=== PATIENT | male | born 1970 | race Hispanic/Latino ===

== ENCOUNTER → 2017-12-09 | Outpatient (CLI) | payer MEDICARE, OTHER ==
[~2017-12-09] MED LIST: AMOX-429 PO; CANA300T PO; GLIM4TAB3 PO; IOPAMIDOL-370 75 ML VIAL IV ONE; LISI40TA4 PO; SITA100T12 PO
== END | disposition home or self-care (01) ==
LOC: RAH 12:20
PROVIDERS: ATTEND Internal Medicine Nephrology
DX: N28.89 Other specified disorders of kidney and ureter (principal)
CPT/HCPCS: 74178; Q9967

== ENCOUNTER 2020-10-28 14:04 | Emergency (ER) | payer MEDICARE ==
[~2020-10-28 14:04] MED LIST changes: -AMOX-429 PO; -CANA300T PO; +CLOP75TA32 PO; +GABA-533 PO; -GLIM4TAB3 PO; -IOPAMIDOL-370 75 ML VIAL IV ONE; -LISI40TA4 PO; +LISI40TA9 PO; -SITA100T12 PO; +SITA1TBM4 PO
[2020-10-28 14:36] LABS: BASOPHILS % (AUTO) 0.2 % (0.0-5.0); EOSINOPHILS % (AUTO) 0.7 % (0.0-8.0); LYMPHOCYTES % (AUTO) 21.6 % (21.0-51.0); MEAN CORPUSCULAR HEMOGLOBIN 29.2 pg (27.0-33.0); MEAN CORPUSCULAR HGB CONC 34.5 g/dL (32.0-36.0); MEAN CORPUSCULAR VOLUME 84.5 fL (79-99); MONOCYTES % (AUTO) 6.5 % (3.0-13.0); NEUTROPHILS % (AUTO) 70.7 % (40.0-77.0); PLATELET COUNT (AUTO) 276 K/uL (130-400); RED BLOOD CELL COUNT(AUTO) 5.21 MIL/uL (4.50-6.20); RED CELL DISTRIBUTION WIDTH 12.9 % (11.0-15.5); WHITE BLOOD COUNT (AUTO) 16.6 K/uL (4.8-10.8)
[2020-10-28 14:49] LABS: CREATININE 1.5 mg/dL (0.5-1.5); POTASSIUM 3.6 mmol/L (3.5-5.1)
[2020-10-28 14:51] LABS: INR 1.03 (0.85-1.15)
[2020-10-28 14:53] LABS: PARTIAL THROMBOPLASTIN TIME 26.8 SEC (26.3-35.5)
[2020-10-28 14:54] LABS: ALBUMIN 3.7 g/dL (3.5-5.0); BILIRUBIN,TOTAL 0.5 mg/dL (0.2-1.0); TOTAL PROTEIN, SERUM 8.4 g/dL (6.0-8.3)
[2020-10-28] MEDS ORDERED: MAG/ALUM/SIMETH 30 ML UDCUP ONE (15:24)
[2020-10-28] MEDS ORDERED: LIDOCAINE HCL 2% VISCOUS 15 ML UDCUP ONE (15:24)
[2020-10-28] MEDS ORDERED: PANTOPRAZOLE 40 MG/VIAL ONE (15:25)
== END 2020-10-28 16:42 | disposition left against medical advice (07) ==
LOC: EDH 14:04
DX: R07.89 Other chest pain (principal); K29.20 Alcoholic gastritis without bleeding; E11.9 Type 2 diabetes mellitus without complications; I10 Essential (primary) hypertension; Z72.0 Tobacco use
CPT/HCPCS: 36415; 71045; 80053; 82550; 83690; 84484; 85025; 85610; 85730; 93005; 96365; 99285; C9113

== ENCOUNTER 2021-12-09 16:36 | Observation (INO) | payer MEDICARE ==
[~2021-12-09] VITALS: Ht 172.7 cm; Wt 97.1 kg
[2021-12-09 17:18] LABS: HEMATOCRIT 41.4 % (42-54); MEAN CORPUSCULAR HEMOGLOBIN 29.4 pg (27.0-33.0); MEAN CORPUSCULAR HGB CONC 33.3 g/dL (32.0-36.0); MEAN CORPUSCULAR VOLUME 88.1 fL (79-99); RED BLOOD CELL COUNT(AUTO) 4.7 MIL/uL (4.50-6.20); RED CELL DISTRIBUTION WIDTH 13.6 % (11.0-15.5); WHITE BLOOD COUNT (AUTO) 8.9 K/uL (4.8-10.8)
[2021-12-09] MEDS ORDERED: PHARMACY COMMUNICATION MISC SCH ×3 (17:30→18:00)
[2021-12-09] MEDS ORDERED: ONDANSETRON 4MG INJ IVP PRN (17:30)
[2021-12-09] MEDS ORDERED: DIPHENHYDRAMINE HCL 25 MG CAPSULE PO PRN (17:30)
[2021-12-09] MEDS ORDERED: GLUCAGON 1MG KIT 1 MG ML IM PRN (17:30)
[2021-12-09] MEDS ORDERED: 0.9%NACL 10ML VIAL IVP PRN (17:30)
[2021-12-09] MEDS ORDERED: ACETAMINOPHEN 325 MG TAB PO PRN (17:30)
[2021-12-09] MEDS ORDERED: ZOLPIDEM TARTRATE 5 MG TAB PO PRN (17:30)
[2021-12-09] MEDS ORDERED: GLIP10TA9 PO (17:33)
[2021-12-09] MEDS ORDERED: SERT-440 PO (17:33)
[2021-12-09] MEDS ORDERED: PIOG30TA70 PO (17:33)
[2021-12-09] MEDS ORDERED: LINE600T14 PO (17:33)
[2021-12-09] MEDS ORDERED: SITA1TAB6 PO (17:33)
[2021-12-09] MEDS ORDERED: AEC81 PO (17:33)
[2021-12-09] MEDS ORDERED: CEFU500T67 PO (17:33)
[2021-12-09] MEDS ORDERED: FOLI1TAB85 PO (17:33)
[2021-12-09] MEDS ORDERED: PRAV20TA4 PO (17:33)
[2021-12-09 17:46] LABS: CREATININE 1.4 mg/dL (0.5-1.5)
[2021-12-09 17:51] LABS: ALBUMIN 3.4 g/dL (3.5-5.0); BILIRUBIN,DIRECT 0.1 mg/dL (0.0-0.3); BILIRUBIN,TOTAL 0.3 mg/dL (0.2-1.0); TOTAL PROTEIN, SERUM 7.5 g/dL (6.0-8.3)
[2021-12-09] MEDS ORDERED: VANCOMYCIN 1.75GM/250ML NS IV ONE ×2 (18:00)
[2021-12-09] MEDS ORDERED: VANCOMYCIN PROTOCOL PER PHARMACY IV SCH (18:00)
[2021-12-09] MEDS ORDERED: INSULIN R NPO SS1 SQ SCH (18:00)
[2021-12-09] MEDS ORDERED: MORPHINE 4 MG SYG IVP PRN (20:30)
[2021-12-09] MEDS ORDERED: MORPHINE 4 MG SYG IM PRN (20:30)
[2021-12-09] MEDS ORDERED: INSULIN R PO SSI SQ SCH (21:00)
[2021-12-09 21:45] VITALS: BP 149/92
[2021-12-09] MEDS: MORPHINE 4 MG SYG IVP PRN (23:59)
[2021-12-09] MEDS: ZOSYN 3.375GM+NS 50ML 50 ML IV SCH (23:59)
[2021-12-10] VITALS: BP 159/93
[2021-12-10 04:00] VITALS: BP 122/78
[2021-12-10] MEDS: MORPHINE 4 MG SYG IVP PRN ×4 (04:13→19:59)
[2021-12-10 05:02] LABS: HEMATOCRIT 39.2 % (42-54); MEAN CORPUSCULAR HEMOGLOBIN 28.2 pg (27.0-33.0); MEAN CORPUSCULAR HGB CONC 32.1 g/dL (32.0-36.0); MEAN CORPUSCULAR VOLUME 87.7 fL (79-99); RED BLOOD CELL COUNT(AUTO) 4.47 MIL/uL (4.50-6.20); RED CELL DISTRIBUTION WIDTH 13.5 % (11.0-15.5); WHITE BLOOD COUNT (AUTO) 11.1 K/uL (4.8-10.8)
[2021-12-10] MEDS: VANCOMYCIN 750MG VIAL IVPB SCH ×2 (05:30→17:06)
[2021-12-10] MEDS: 0.9% NACL 250ML 250 ML IV SCH ×2 (05:30→17:06)
[2021-12-10 05:31] LABS: ALBUMIN 3.2 g/dL (3.5-5.0); BILIRUBIN,DIRECT 0.1 mg/dL (0.0-0.3); BILIRUBIN,TOTAL 0.5 mg/dL (0.2-1.0); CREATININE 1.5 mg/dL (0.5-1.5); TOTAL PROTEIN, SERUM 7.1 g/dL (6.0-8.3)
[2021-12-10 08:00] VITALS: BP 131/76
[2021-12-10] MEDS: ZOSYN 3.375GM+NS 50ML 50 ML IV SCH ×3 (09:33→22:29)
[2021-12-10 11:00] VITALS: BP 95/57
[2021-12-10 15:55] VITALS: BP 103/70
[2021-12-10 20:00] VITALS: BP 104/64
[2021-12-11] VITALS: BP_SYST 110; BP_SYST 127; BP_DIAS 74; BP_DIAS 79
[2021-12-11] MEDS: MORPHINE 4 MG SYG IVP PRN ×2 (00:31→04:54)
[2021-12-11 04:00] VITALS: BP 135/76
[2021-12-11] MEDS: ZOSYN 3.375GM+NS 50ML 50 ML IV SCH ×3 (06:05→23:35)
[2021-12-11] MEDS: VANCOMYCIN 750MG VIAL IVPB SCH ×2 (06:45→22:03)
[2021-12-11] MEDS: 0.9% NACL 250ML 250 ML IV SCH ×2 (06:45→22:03)
[2021-12-11 08:00] VITALS: BP 120/68
[2021-12-11] MEDS ORDERED: COMPOUND IV REFRIGERATED 1 EACH IVSOLN MISC PRN (09:00)
[2021-12-11] MEDS: HYDROCODONE/ACETAMINOPHEN 7.5/325 MG TAB PO SCH ×2 (09:19→17:51)
[2021-12-11 11:32] VITALS: BP 108/67
[2021-12-11] MEDS ORDERED: VANCOMYCIN 1.25GM/NS 250ML IVPB SCH ×2 (12:00)
[2021-12-11 16:00] VITALS: BP 151/82
[2021-12-11 20:00] VITALS: BP 131/85
[2021-12-12] VITALS: BP 112/51
[2021-12-12] MEDS: HYDROCODONE/ACETAMINOPHEN 7.5/325 MG TAB PO SCH ×2 (01:16→08:25)
[2021-12-12 04:00] VITALS: BP 127/80
[2021-12-12 04:46] LABS: BASOPHILS % (AUTO) 0.3 % (0.0-5.0); EOSINOPHILS % (AUTO) 3.7 % (0.0-8.0); HEMATOCRIT 37.1 % (42-54); LYMPHOCYTES % (AUTO) 25.2 % (21.0-51.0); MEAN CORPUSCULAR HEMOGLOBIN 28.2 pg (27.0-33.0); MEAN CORPUSCULAR HGB CONC 32.6 g/dL (32.0-36.0); MEAN CORPUSCULAR VOLUME 86.5 fL (79-99); NEUTROPHILS % (AUTO) 65.4 % (40.0-77.0); PLATELET COUNT (AUTO) 175 K/uL (130-400); RED BLOOD CELL COUNT(AUTO) 4.29 MIL/uL (4.50-6.20); RED CELL DISTRIBUTION WIDTH 13.4 % (11.0-15.5); WHITE BLOOD COUNT (AUTO) 9.9 K/uL (4.8-10.8)
[2021-12-12] MEDS: MORPHINE 4 MG SYG IVP PRN ×2 (04:51→11:41)
[2021-12-12 05:35] LABS: BILIRUBIN,TOTAL 0.2 mg/dL (0.2-1.0); CREATININE 1.5 mg/dL (0.5-1.5); POTASSIUM 3.8 mmol/L (3.5-5.1); TOTAL PROTEIN, SERUM 6.8 g/dL (6.0-8.3)
[2021-12-12] MEDS: VANCOMYCIN 750MG VIAL IVPB SCH (06:34)
[2021-12-12] MEDS: ZOSYN 3.375GM+NS 50ML 50 ML IV SCH (06:34)
[2021-12-12] MEDS: 0.9% NACL 250ML 250 ML IV SCH (06:34)
[2021-12-12 08:00] VITALS: BP 129/75
[2021-12-12 12:07] VITALS: BP 136/84
== END 2021-12-12 13:30 | disposition home or self-care (01) ==
LOC: EDH 16:36 → EDHIP 16:37 → 3CH 21:01
PROVIDERS: ADMIT Internal Medicine; ATTEND Internal Medicine
DX: H60.02 Abscess of left external ear (principal); H60.12 Cellulitis of left external ear; E11.51 Type 2 diabetes mellitus with diabetic peripheral angiopathy without gangrene; I10 Essential (primary) hypertension; E78.5 Hyperlipidemia, unspecified; J44.9 Chronic obstructive pulmonary disease, unspecified; G47.33 Obstructive sleep apnea (adult) (pediatric); Z79.899 Other long term (current) drug therapy
CPT/HCPCS: 36415 ×4; 80048 ×2; 80053; 80076 ×2; 80202; 82948 ×3; 85025; 85027 ×2; 87070; 96365; 96366 ×4; 96367; 96368; 96375; 96376 ×4; G0378 ×67; G0379; J2270 ×10; J2405; J2543 ×8; J3370 ×7; J7050 ×7

== ENCOUNTER 2025-06-22 21:15 | Emergency (ER) | payer MEDICARE, MEDICAID ==
[~2025-06-22] VITALS: Ht 172.7 cm; Wt 95.3 kg
[~2025-06-22 21:15] MED LIST changes: -CLOP75TA32 PO; +DAPA10TA PO; +FAMO40TA7 PO; +FLUT16H EN; +FOLI0.8T22 PO; +GABA-529 PO; -GABA-533 PO; -LISI40TA9 PO; +PRAV20TA59 PO; +SERT-440 PO; -SITA1TBM4 PO
[2025-06-22 21:28] LABS: IMMATURE GRANULOCYTE ABSOLUTE 0.07 K/uL (0-1); NUCLEATED RED BLOOD CELLS 0.0 % (0.0-0.19); PLATELET COUNT (AUTO) 581 K/uL (130-400); RED BLOOD CELL COUNT(AUTO) 5.46 MIL/uL (4.50-6.20); RED CELL DISTRIBUTION WIDTH 18.6 % (11.0-15.5); WHITE BLOOD COUNT (AUTO) 14.9 K/uL (4.8-10.8)
--- NOTE | 2025-06-22 21:34 | NUR ---
UA CUP PROVIDED TO PT
[2025-06-22 21:35] LABS: CREATININE 2.1 mg/dL (0.5-1.3); GLOMERULAR FILTR. RATE CALC 36.0 mL/min (>90); GLUCOSE,RANDOM 341.0 mg/dL (70-105); SODIUM SERUM 133.0 mmol/L (136-145); UREA NITROGEN, BLOOD 20.0 mg/dL (7-18)
--- NOTE | 2025-06-22 21:39 | ERN ---
ED Note History of Present Illness Stated Complaint: CHEST PAIN, SHORTNESS OF BREATH, ARM GOING NUMB Chief Complaint: Chest Pain Time Seen by MD: 21:17 Dictation: Patient is a 55-year-old male with a past medical history of diabetes mellitus type 2, hypertension, hypercholesteremia, sleep apnea who presented to the ER complaining of shortness breath and chest discomfort. He states that he was sitting at the chair at his house when suddenly he started feeling shortness breath and chest discomfort, patient also mentioned that he is having some permanent issues. He believes that he has anxiety. Allergies: Coded Allergies: No Known Drug Allergies (Verified Allergy, Unknown, 08/16/17) Home Meds Reported Medications Fluticasone Propionate (Flonase Nasal [place]) 50 Mcg/Actuation [place], 1 SPRY EN DAILY 09/09/24 Famotidine (Famotidine) 40 Mg Tablet, 1 TAB PO BID 09/09/24 Gabapentin (Gabapentin) 100 Mg Capsule, 100 MG PO BID, CAP 09/05/24 Dapagliflozin Propanediol (Farxiga) 10 Mg Tablet, 1 TAB PO DAILY for 30 Days, #30 TAB 0 Refills 09/05/24 Pravastatin Sodium (Pravastatin Sodium) 20 Mg Tablet, 20 MG PO DAILY, TAB 06/16/23 Sertraline HCl (Sertraline HCl) 100 Mg Tablet, 100 MG PO DAILY, TAB 03/05/22 Folic Acid/Vitamin B Comp W-C (Tashia-Duran Tablet) 0.8 Mg Tablet, 1 TAB PO QDP 03/05/22 Past Medical History Past Medical History: Diabetes-Type II, High Cholesterol, Hypertension Surgical History: Other Surgical History Other: LEFT FOOT AMPUTATION; RT LITTLE TOE & GREAT TOE AMPUTATION Family History: DM, HTN Social History: Negative, Lives with family, Other Review of System Dictation NEGATIVE EXCEPT PER HPI Constitutional: Negative for fever,chills, and weight loss Eyes: Negative for injury, pain,redness, and discharge ENT: Negative for injury,pain or swelling Cardiovascular: Chest discomfort. Respiratory: Shortness of breath Abdomen/GI: Negative for abdominal pain, nausea, vomiting, diarrhea, and constipation Back: Negative for injury and pain : Negative for injury, bleeding and discharge MS/Extremity: Negative for injury and deformity Skin: Negative for rash, and discoloration Neuro: Negative for headache, weakness, numbness, tingling, and seizure Psych: Negative for suicide ideation, homicidal ideation, and hallucinations Initial Vital Sign VS Vital Signs Date Time Temp Pulse Resp B/P (MAP) Pulse Ox O2 Delivery O2 Flow Rate FiO2 06/22/25 21:23 98.2 117 32 109/79 98 Nasal Cannula* 2 28 Physical Exam Dictation General: awake, alert, NAD Head/Face: Normocephalic, atraumatic Eyes: PERRL, EOMI, vision at baseline ENT: oral cavity clear, TMs clear, no signs of infection Neck: Trachea midline, supple, no nuchal rigidity Cardiovascular: Tachycardia, normal S1/S2, No MRGs, no JVD Respiratory: CTAB, no respiratory distress, No rales or wheezes Abdomen: Soft , no tender Skin: Warm, dry, normal turgor, no rash MS/Extremity: Pulses equal, no cyanosis, neurovascular intact, FROM Neuro: COAx4, GCS 15, strength 5/5, CN 2-12 intact, normal cerebellar exam, normal gait, Psych: Normal behavior, mood, and affect normal Results (Laboratory/Radiology) Laboratory/Radiology Laboratory Tests Test 06/22/25 21:20 06/23/25 00:30 White Blood Count 14.9 K/uL (4.8-10.8) H Red Blood Count 5.46 MIL/uL (4.50-6.20) Hemoglobin 12.7 g/dL (14.0-18.0) L Hematocrit 41.9 % (42-54) L Mean Corpuscular Volume 76.7 fL (79-99) L Mean Corpuscular Hemoglobin 23.3 pg (27.0-33.0) L Mean Corpuscular Hemoglobin Concent 30.3 g/dL (32.0-36.0) L Red Cell Distribution Width 18.6 % (11.0-15.5) H Platelet Count 581 K/uL (130-400) H Mean Platelet Volume 10.3 fL (7.5-10.5) Immature Granulocyte % (Auto) 0.5 % (0-1) Neutrophils (%) (Auto) 76.9 % (40.0-77.0) Lymphocytes (%) (Auto) 15.3 % (21.0-51.0) L Monocytes (%) (Auto) 6.1 % (3.0-13.0) Eosinophils (%) (Auto) 0.9 % (0.0-8.0) Basophils (%) (Auto) 0.3 % (0.0-5.0) Neutrophils # (Auto) 11.5 K/uL (1.8-7.7) H Lymphocytes # (Auto) 2.3 K/uL (1.0-4.8) Monocytes # (Auto) 0.9 K/uL (0.1-1.0) Eosinophils # (Auto) 0.13 K/uL (0.00-0.70) Basophils # (Auto) 0.04 K/uL (0.00-0.20) Absolute Immature Granulocyte (auto 0.07 K/uL (0-1) Nucleated Red Blood Cells 0.0 % (0.0-0.19) Red Blood Cell Morphology See comments D-Dimer Quantitative (PE/DVT) 864 ng/mL (0-500) *H Sodium Level 133 mmol/L (136-145) L Potassium Level 3.7 mmol/L (3.5-5.1) Chloride Level 95 mmol/L (101-111) L Carbon Dioxide Level 28 mmol/L (21-32) Blood Urea Nitrogen 20 mg/dL (7-18) H Creatinine 2.1 mg/dL (0.5-1.3) H Glomerular Filtration Rate Calc 36 mL/min (>90) Random Glucose 341 mg/dL (70-105) H Total Calcium 9.0 mg/dL (8.5-10.1) Total Creatine Kinase 85 U/L (21-232) Troponin I High Sensitivity 25 ng/L (4-75) Urine Color Light-Yellow (YELLOW) Urine Appearance CLEAR (CLEAR) Urine pH 6.5 (5.0-8.0) Urine Specific [place] 1.004 (1.001-1.031) Urine Protein NEGATIVE mg/dL (NEGATIVE) Urine Glucose (UA) >=1000 mg/dL (NEGATIVE) H Urine Ketones NEGATIVE mg/dL (NEGATIVE) Urine Occult Blood NEGATIVE (NEGATIVE) Urine Nitrate NEGATIVE (NEGATIVE) Urine Bilirubin NEGATIVE mg/dL (NEGATIVE) Urine Urobilinogen 0.2 mg/dL (0.2-1.0) Urine Leukocyte Esterase NEGATIVE Vanessa/uL Urine RBC 0-1 /HPF (0-1) Urine WBC 0-1 /HPF (0-1) Urine Squamous Epithelial Cells RARE /HPF (0-2) Urine Bacteria None /HPF (None Seen) Urine Opiates Screen NEGATIVE (NEGATIVE) Urine Barbiturates Screen NEGATIVE (NEGATIVE) Urine Phencyclidine Screen NEGATIVE (NEGATIVE) Urine Amphetamines Screen NEGATIVE (NEGATIVE) Urine Benzodiazepines Screen NEGATIVE (NEGATIVE) Urine Cocaine Screen POSITIVE (NEGATIVE) H Urine Marijuana (THC) Screen NEGATIVE (NEGATIVE) EKG Comment: Rate 119, GA 152, QT 342, Sinus tachycardia reported on EKG. ED Course ED Course Orders Procedure Category Date Status Time Vital Signs Per CPOE 06/22/25 Transmitted Routine 21:18 Chest 1vw RAD 06/22/25 Resulted 21:18 12 Lead Ekg Tracing- EKG 06/22/25 Logged Technical 21:18 Oxygen By Nc/Pulse Ox CPOE 06/22/25 Transmitted 21:18 Maintain Iv CPOE 06/22/25 Transmitted 21:18 Iv Insertion CPOE 06/22/25 Transmitted 21:18 Cardiac Monitoring CPOE 06/22/25 Transmitted 21:18 Pulse Oximetry With CPOE 06/22/25 Transmitted Vs And Prn 21:18 Cbc With Differential LAB 06/22/25 Complete 21:18 Activity: Br W/Brp CPOE 06/22/25 Transmitted With Assist 21:18 Creatine Kinase, Total LAB 06/22/25 Complete 21:18 Troponin I High LAB 06/22/25 Complete Sensitivity 21:18 Basic Metabolic Panel LAB 06/22/25 Complete 21:18 Lorazepam 1 Mg PHA 06/22/25 Complete (Ativan) 21:30 D-Dimer LAB 06/22/25 Complete 21:37 Drug Screen Urine LAB 06/22/25 Complete 21:37 0.9%Nacl 1000ml (Ns PHA 06/22/25 Complete 1000ml) 22:30 Ct Chest Pe Protocol CT 06/22/25 Resulted Wwo Cont 22:11 Ct Abdomen/Pelvis CT 06/22/25 Resulted W/Contrast 22:16 Iohexol (Omnipaque) PHA 06/23/25 Complete 00:33 Urinalysis LAB 06/23/25 Complete W/Microscopic 00:30 Initiate Heparin BILL 06/23/25 In Process Treatment Pro 02:07 Heparin 5,000 Unit PHA 06/23/25 In Process Vial (Heparin 5,000 U 03:00 Heparin 25,000 PHA 06/23/25 In Process Units/250ml D5w 03:00 Heparin Protocol CPOE 06/23/25 Transmitted Monitoring 02:07 Pt And Ptt LAB 06/23/25 Logged 02:29 Current Medications Medications (Trade) Dose Ordered Sig/Vaishali Route PRN Reason Start Time Stop Time Status Last Admin Dose Admin Heparin Sodium (Porcine) (HEParin 5,000 UNIT VIAL) *calculation based on ACTUAL B... AD PRN IV HEPARIN PROTOCOL 06/23/25 03:00 07/23/25 02:59 Heparin Sodium/ Dextrose 250 ml @ 0 mls/hr Q6H IV 06/23/25 03:00 07/23/25 02:59 Iohexol (Omnipaque) 75 ml STK-MED ONCE IV 06/23/25 00:33 06/23/25 00:33 DC Lorazepam (AtiVAN) 1 mg ONCE ONCE PO 06/22/25 21:30 06/22/25 21:31 DC 06/22/25 21:44 Sodium Chloride 1,000 ml @ 0 mls/hr ONCE ONCE IV 06/22/25 22:30 06/22/25 22:31 DC 06/22/25 22:19 Vital Signs Date Time Temp Pulse Resp B/P (MAP) Pulse Ox O2 Delivery O2 Flow Rate FiO2 06/23/25 02:42 105 26 138/80 97 Room Air* 0 21 06/23/25 01:22 98.2 110 26 141/83 98 Room Air* 0 21 06/22/25 22:50 98.2 113 24 110/81 98 Room Air* 0 21 06/22/25 21:23 98.2 117 32 109/79 98 Nasal Cannula* 2 28 Medical Decision Making MDM 55-year-old male with a past medical history of diabetes mellitus type 2, hypertension, hypercholesterolemia, sleep apnea come to the ER complaining of shortness breath associated with the chest discomfort. On arrival patient is tachycardic with a heart rate in the 120s. Patient mentioned that he is having some personal issues, he does not want to talk about. Differential diagnosis: Anxiety, chest pain, acute respiratory failure, pulmonary embolism, drug abuse. Chest pain workup D-dimer ordered Drug screen --------- D-dimer was elevated above 800 Drug screen positive for cocaine CTA performed to rule out PE: There is poor enhancement in the posterior segmental and subsegmental branches of the bilateral lower lobe pulmonary arteries; it could be due to technical limitations, and the possibility of acute pulmonary thromboembolism cannot be excluded. The remaining major pulmonary artery segmental branches are within normal limits. Patient will be admitted to the medical floor due to postop be, he will be started on heparin drip MDM: Differential diagnosis: Rationale: Tests considered and ordered secondary to shared decision making include: labs, ECG and radiology Previous outside records reviewed: Old ER visits. Risk of complication and/or morbidity or mortality of patient management: None Medications-Per medication reconciliation Need for hospitalization: Patient does meet criteria for hospitalization. Need for emergency major/minor surgery: No There are no social concerns with this patient. Prescription drug management Prescriptions will include symptomatic care Patient's prior external medical records from other ER visits were reviewed by me as indicated. Prior testing and results from previous visits were reviewed. Prior tests were taken into account with medical decision making and resource utilization, independent historian/historians were used to obtain complete medical history. I independently interpreted the test that were performed, results were reviewed by me and considered findings on radiology if ordered. Medical management and examination interpretation discussions were had by me with other qualified healthcare professionals as indicated for the patient's care. DX & DISP Disposition: AMA Decision to Admit Date: Jun 23, 2025 Departure Impression: Primary Impression: Pulmonary embolism Additional Impressions: HUEY (acute kidney injury), Hyperglycemia due to diabetes mellitus, Tachycardia Condition: Stable Referrals: TANESHA GRISSOM MD (PCP) Plan was to admit the patient on heparin drip due to pulmonary embolism. But patient said that he wanted to go against medical advice. All the risk was explained to the patient if he leaves against medical advice but patient said he understood and we will leave. SHALONDA DAVIS MD Jun 22, 2025 21:39
[2025-06-22 21:40] LABS: CREATINE KINASE, TOTAL 85.0 U/L (21-232)
[2025-06-22] MEDS ORDERED: IOHEXOL-350 75 ML VIAL IV ONE (22:16)
[2025-06-22] MEDS: 0.9%NACL 1000ML 1,000 ML IV ONE (22:19)
--- NOTE | 2025-06-22 23:45 | HMCIMG ---
EXAM: CR Chest, 1 view CLINICAL HISTORY: Chest pain. COMPARISON: 09/05/2024. FINDINGS: The lungs show no infiltrates or other acute findings. No pleural effusion or pneumothorax. The cardiomediastinal silhouette is within normal limits. No acute osseous abnormality. IMPRESSION: No acute cardiopulmonary process is evident. Compared to the prior study, there is no significant interval change. /[place]
[2025-06-23] MEDS ORDERED: IOHEXOL-350 75 ML VIAL IV ONE (00:33)
[2025-06-23 00:55] LABS: AMPHET/METH SCREEN,URINE NEGATIVE (NEGATIVE); APPEARANCE,URINE CLEAR (CLEAR); BARBITURATE SCREEN, URINE NEGATIVE (NEGATIVE); CANNABINOID SCREEN,URINE NEGATIVE (NEGATIVE); COCAINE SCREEN,URINE POSITIVE (NEGATIVE); GLUCOSE, URINE (UA) >=1000 mg/dL (NEGATIVE); LEUKOCYTE ESTERASE ,URINE NEGATIVE Leu/uL (NEGATIVE); NITRATE,URINE NEGATIVE (NEGATIVE); OCCULT BLOOD,URINE NEGATIVE (NEGATIVE); SQUAMOUS EPITHELIAL CELL,UR RARE /HPF (0-2)
[2025-06-23 01:22] VITALS: TEMP 98.3
--- NOTE | 2025-06-23 01:57 | HMCIMG ---
EXAM: CTA examination of the chest CLINICAL HISTORY: Rule out pulmonary embolism. TECHNIQUE: Thin collimated axial CTA images of the chest were obtained, with sagittal and coronal reformatted images also submitted. A CT scan is done according to ALARA (As Low as Reasonably Achievable). CONTRAST USED: Omnipaque 350. COMPARISON: None. FINDINGS: The lungs are clear. No acute infiltrate, effusion, or pneumothorax. No pericardial effusion. The heart size is within normal limits. No thoracic aortic aneurysm or dissection. There is poor enhancement in the posterior segmental and subsegmental branches of the bilateral lower lobe pulmonary arteries; it could be due to technical limitations, and the possibility of acute pulmonary thromboembolism cannot be excluded. The remaining major pulmonary artery segmental branches are within normal limits. No axillary, supraclavicular, or mediastinal lymphadenopathy. No focal thyroid abnormality. Limited views of the upper abdomen demonstrate mild fatty liver. No acute or suspicious osseous abnormality. IMPRESSION: There is poor enhancement in the posterior segmental and subsegmental branches of the bilateral lower lobe pulmonary arteries; it could be due to technical limitations, the possibility of acute pulmonary thromboembolism cannot be excluded. The lungs are clear. /Brian
--- NOTE | 2025-06-23 02:01 | HMCIMG ---
EXAM: CT Abdomen and Pelvis with IV contrast. CLINICAL HISTORY: Chest pain. Upper abdominal pain. TECHNIQUE: Thin collimated axial CT images of the abdomen and pelvis with intravenous contrast were obtained, with sagittal and coronal reformatted images also submitted. A CT scan is done according to ALARA (As Low As Reasonably Achievable). COMPARISON: Prior CT abdomen and pelvis dated 12/09/17. FINDINGS: Unremarkable visualized lung parenchyma. No focal abnormality within the liver, gallbladder, pancreas, spleen, adrenals, or kidneys. There is no obvious bowel wall thickening. Bowel loops are normal in caliber without evidence of obstruction or ileus. The appendix is normal. A component of moderate constipation is present in the colon. The urinary bladder is mildly distended with diffuse wall thickening concerning mild cystitis. Unremarkable reproductive organs. Abdominal and pelvic vessels are patent. No lymphadenopathy. No free fluid. There is no acute osseous abnormality. Multilevel thoracolumbar spondylosis. IMPRESSIONS: No acute process in the abdomen or pelvis. Questionable mild cystitis. Recommend an ultrasound of the urinary bladder and a full bladder status for further evaluation. No significant interval change. /Brian
--- NOTE | 2025-06-23 02:39 | NUR ---
PT DESIRED WANTING TO LEAVE AND REFUSING TO BE ADMITTED. ADVICED PT THAT HE WOULD BE LEAVING AGAINST MEDICAL ADVICE. ED MD MADE AWARE OF PT'S DESIRE. PT WILLING TO SIGN AMA PAPERWORK. PT EDUCATED ON THE RISKS OF LEAVING AMA, PT STILL WANTING TO LEAVE AMA.
[2025-06-23 02:42] VITALS: BP 138/80; PULSE 105; RESP 26; O2SAT 97
--- NOTE | 2025-06-23 03:08 | EKG ---
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
[2025-06-27] MEDS ORDERED: OMEP40CA21 PO (04:11)
[2025-06-27] MEDS ORDERED: LISI10TA24 PO (04:11)
[2025-06-27] MEDS ORDERED: BUSP10TA3 PO (04:11)
[2025-06-27] MEDS ORDERED: CLOP75TA32 PO (04:11)
[2025-06-27] MEDS ORDERED: FOLI0.8T22 PO (04:11)
== END 2025-06-23 02:50 | disposition left against medical advice (07) ==
LOC: EDBD → EDH 21:15
DX: I26.99 Other pulmonary embolism without acute cor pulmonale (principal); N17.9 Acute kidney failure, unspecified; E11.65 Type 2 diabetes mellitus with hyperglycemia; E78.00 Pure hypercholesterolemia, unspecified; I10 Essential (primary) hypertension; Z79.84 Long term (current) use of oral hypoglycemic drugs; Z79.899 Other long term (current) drug therapy
CPT/HCPCS: 99285; 71270; 96360; 71045; 96361; 82550; 84484; 80048; 80305; 85025; 85378; 36415; 74177; 93005; 81001; J7030; Q9967; J1644